=== PATIENT | female | born 1960 | race Caucasian/White ===

== ENCOUNTER 2017-01-02 06:00 | Day surgery (SDC) | payer OTHER ==
[2017-01-02] MEDS ORDERED: LIDOCAINE 1% 5 ML SDV ID PRN (06:20)
[2017-01-02] MEDS ORDERED: LR 1,000 ML IV ONE (06:20)
[2017-01-02] MEDS ORDERED: BACITRACIN 50,000 UNITS/10 ML SYR IRR ONE (06:33)
[2017-01-02] MEDS ORDERED: BUPIVACAINE/EPI 0.25% 30 ML SDV ONE (06:33)
[2017-01-02] MEDS ORDERED: SURGIFLO MATRIX KIT WITH THROMBIN TP ONE (06:33)
[2017-01-02] MEDS ORDERED: THROMBIN (BOVINE) 5,000 UNIT VIAL TP ONE (06:33)
[2017-01-02] MEDS ORDERED: MIDAZOLAM 2 MG/2 ML VIAL ONE (06:59)
[2017-01-02] MEDS ORDERED: ceFAZolin 2 GM/DEXTROSE 100 ML IV ONE (07:00)
[2017-01-02] MEDS ORDERED: SCOPOLAMINE HYDROBROMIDE 1.5 MG PATCH TD ONE (07:06)
[2017-01-02] MEDS ORDERED: REMIFENTANIL HCL 1 MG VIAL ONE (07:12)
[2017-01-02] MEDS ORDERED: fentaNYL 100 MCG/2 ML INJ ONE ×3 (07:13→10:03)
[2017-01-02] MEDS ORDERED: PROPOFOL 200 MG/20 ML VIAL ONE ×2 (07:13→09:15)
[2017-01-02] MEDS ORDERED: PROPOFOL/EMULSION 500 MG/50 ML BOTTLE IV ONE (07:13)
[2017-01-02] MEDS ORDERED: DEXAMETHASONE 4 MG/ML VIAL ONE ×2 (07:49)
[2017-01-02] MEDS ORDERED: epHEDrine SULFATE 10 MG/ML SYR ONE ×2 (08:29)
[2017-01-02] MEDS ORDERED: methylPREDNISolone SOD SUCC 125 MG/2 ML VIAL ONE (09:11)
[2017-01-02] MEDS ORDERED: SUGAMMADEX SODIUM 200 MG/2 ML VIAL IVP ONE (09:21)
--- NOTE | 2017-01-02 10:10 | GOP ---
[f rep st] OPERATIVE REPORT DATE OF OPERATION: 01/02/2017 SURGEON: Khloe Tirado DO PREOPERATIVE DIAGNOSIS: 1. Lumbar radiculopathy. 2. L3-4 herniated nucleus pulposus. POSTOPERATIVE DIAGNOSIS: 1. Lumbar radiculopathy. 2. L3-4 herniated nucleus pulposus. PROCEDURE PERFORMED: FINDINGS: SPECIMENS: None. ESTIMATED BLOOD LOSS: 20 mL INDICATIONS: This is a 56-year-old female with a large disk herniation at L3-4 with matching radicu lopathy who has had worsening symptoms. She elected to move forward with diskectomy. DESCRIPTION OF PROCEDURE: She was identified, consented, sites were marked. Brought to the operatin g room, anesthetized under general endotracheal tube anesthesia, rolled onto the OR bed with a WilInOpen n frame. All pressure points were appropriately padded. She was cleansed with chlorhexidine. An 18-g auge spinal needle was introduced. An incision site was marked using fluoro. We then prepped and kwasi ped in the usual sterile fashion. Incision was anesthetized with 0.25% Marcaine with epinephrine. Incision was made with a 10 blade. Hemostasis was obtained with Bovie and bipolar cautery. Bovie dis sected down onto the laminae of L3, 4, and the Shadow Line retractor was placed. [place] 4 was plac ed to verify level. We then brought in the microscope and using high-speed drill, created a laminoto my at L3-4, opening the ligamentum flavum with a ball-tip probe and extending this laminotomy and sl ight mesial facetectomy with 2 and 3 Kerr[place], undercutting across the midline as the dura was very taut and tense. We were then able to use a ball-tip probe to retract the dura medially and placed a nerve root retractor. We used an 11 blade to open the anulus, and then used micropituitary and ball- tipped probe and to extract this. The disk came out in several fragments. There was a la rge rounded calcified piece of disk that was densely adherent to the dura in the axilla of the nerve root. This was gently dissected out and removed. We then completely explored the epidural space and removed any further free fragments of disk. Explored the foramen. It was wide open. Foraminotomy wa s performed and the dura appeared to relax and no longer be tense. We then copiously irrigated with bacitracin infused saline. Meticulous hemostasis was obtained with FloSeal and bipolar cautery. Once hemostasis been obtained 125 mg Solu-Medrol was placed over the nerve root. The ShadowLine retracto r was then removed. The microscope was brought out. Fascia was closed with 0 Vicryl pop-off, subcuta neous layer with 2-0 Vicryl pop-off, subcutaneous layer with 3-0 Vicryl pop off. The skin was closed with a 4-0 running Monocryl and the wound was dressed with Steri-Strips, gauze and a Tegaderm. Patient tolerated procedure well. Neuro monitoring remained stable. There were no complications. DESCRIPTION OF PROCEDURE: PROCEDURE: Right L3-4 microdiskectomy. FLUIDS: 1200 mL crystalloid. URINE OUTPUT: None. DRAINS: None. COMPLICATIONS: None. /[id number]/MODL
[2017-01-02] MEDS ORDERED: METHOCARBAMOL 750 MG TAB PO ONE (10:15)
[2017-01-02] MEDS ORDERED: METHOCARBAMOL 750 MG TAB ONE (10:19)
== END 2017-01-02 11:50 | disposition home or self-care (01) ==
LOC: FSGY 06:00
PROVIDERS: ATTEND Neurological Surgery
PROC: 0ST20ZZ Resection of Lumbar Vertebral Disc, Open Approach (ICD-10-PCS; principal; 2017-01-02 07:15)
PROC: B01B1ZZ Fluoroscopy of Spinal Cord using Low Osmolar Contrast (ICD-10-PCS; 2017-01-02 07:15)
DX: M51.26 Other intervertebral disc displacement, lumbar region (principal); M47.26 Other spondylosis with radiculopathy, lumbar region; F41.9 Anxiety disorder, unspecified; J45.909 Unspecified asthma, uncomplicated; M79.7 Fibromyalgia
CPT/HCPCS: J0690; J1100; J2250; J2704; J3010

== ENCOUNTER → 2018-12-23 | Outpatient (CLI) | payer OTHER | LOC: FIMAGING 11:14 | PROVIDERS: ATTEND Family Medicine | DX: Z12.31 Encounter for screening mammogram for malignant neoplasm of breast (principal) ==